=== PATIENT | female | born 1965 | race Hispanic/Latino ===

== ENCOUNTER 2020-11-29 11:09 | Outpatient (CLI) | payer BC ==
--- NOTE | 2020-11-29 11:29 | XRay Report ---
ABDOMEN 1 VIEW(S) INDICATION / CLINICAL INFORMATION: CALCULUS OF KIDNEY N20.0. COMPARISON: None available. FINDINGS: TUBES / LINES: None. BOWEL GAS PATTERN: No significant abnormality. FREE AIR / EXTRALUMINAL GAS: None seen. ADDITIONAL FINDINGS: There is suggestion of a tiny 2 mm calcification in the mid right kidney. The re nal shadows are unremarkable otherwise. There is also a 3 mm right pelvic calcification which could r epresent a distal right ureteral stone or phlebolith. Bilateral common iliac stents are noted. IMPRESSION: Question mild right nephrolithiasis. Signer Name: Shlomo Reddy Jr, MD Signed: 11/29/2020 11:25 AM Workstation Name: [id number]
== END 2020-11-29 11:10 | disposition home or self-care (01) ==
LOC: SPVIMAG 11:09
PROVIDERS: ATTEND Urology
DX: N20.0 Calculus of kidney (principal)
CPT/HCPCS: 74018